=== PATIENT | female | born 1930 | race Caucasian/White ===

== ENCOUNTER 2017-04-29 19:37 | Emergency (ER) | payer BC, MEDICARE ==
[~2017-04-29] VITALS: Ht 160 cm; Wt 61.2 kg
--- NOTE | 2017-04-29 19:58 | NUR ---
RT IN ROOM FOR EKG
[2017-04-29] MEDS ORDERED: METF500T4 PO (20:05)
--- NOTE | 2017-04-29 20:09 | NUR ---
XRAY IN ROOM FOR IMAGING
--- NOTE | 2017-04-29 20:14 | ER.PDOC ---
General Chief Complaint: Trauma Stated Complaint: SHOULDER AND CHEST INJURY Time seen by MD: 20:11 Source: patient, family Exam Limitations: no limitations History of Present Illness Initial Comments 87 year old white female who was brought in after a fall. She was trying to go the bathroom earlier when she failed on a two steps stairway and hurt anterior chest wall. No shortness of breath, no head injury. No open wound. Occurred: this morning Where: home Severity: moderate Injuries/Pain Location: chest Context: Slipped Loss of Consciousness: No Loss of Consciousness Allergies: Coded Allergies: Penicillins (Verified Allergy, Unknown, Rash, 04/29/17) Sulfa (Sulfonamide Antibiotics) (Verified Allergy, Unknown, 04/29/17) MEDS Reported Medications Metformin Hcl (METFORMIN HCL) 500 Mg Tablet, 1 TAB PO BID, #60 TAB 3 Refills 04/29/17 Past Medical History Medical History: diabetes, other (dementia) Surgical History: back LMP (females 10-50): postmenopause Social History Smoking: non-smoker Alcohol Use: none Drug Use: none Review of Systems Constitutional: denies no symptoms reported, denies see HPI, denies chills, denies diaphoresis, denies fever, denies malaise, denies weakness, denies other Eyes: denies no symptoms reported, denies see HPI, denies blindness, denies blurred vision, denies drainage, denies decreased acuity, denies foreign body sensation, denies inflammation, denies pain, denies photophobia, denies previous injury, denies shadows, denies tunnel vision, denies vision change, denies contact lenses, denies glasses, denies other Ears, Nose, Mouth, Throat: no symptoms reported Respiratory: see HPI Cardiovascular: denies no symptoms reported, denies see HPI, denies chest pain , denies edema, denies palpitations, denies syncope, denies other Gastrointestinal: no symptoms reported Genitourinary: no symptoms reported Musculoskeletal: no symptoms reported Skin: no symptoms reported Physical Exam General Appearance: No Apparent Distress, WD/WN Head: No Evidence of Injury Eyes: bilateral eye normal inspection Ears, Nose, Mouth, Throat: No Evidence of ENT Injury Neck: Non-Tender, Normal Alignment, Nexus criteria neg Cardiovascular/Respiratory: Regular Rate, Rhythm, No M/R/G, Normal Peripheral Pulses, No JVD, Normal Breath Sounds, No Respiratory Distress, Rib Tenderness ( sternal tenderness and right anterior rib cage pain along the nipple line) Gastrointestinal: Normal Bowel Sounds, No Organomegaly, No Pulsatile Mass, Non Tender, Soft Back: Normal Inspection, No CVA Tenderness, No Vertebral Tenderness Extremities: No Evidence of Injury, Normal Range of Motion, Non-Tender, No Pedal Edema Ashutosh Coma Score Best Eye Response: (4) Open Spontaneously Best Verbal Response: (5) Oriented Best Motor Response: (6) Obeys Commands Results/Orders Results/Orders Administered Medications Medications (Trade) Dose Ordered Sig/Jonnathan Route PRN Reason Start Time Stop Time Status Last Admin Dose Admin Acetaminophen/ Codeine Phosphate (Tylenol #3) 2 each OT ONCE PO 04/29/17 20:30 04/29/17 20:31 DC 04/29/17 20:34 EKG/XRAY/CT/US CT Comments: visible part of ribs and sternum have no fractures Departure Time of Disposition: 21:48 Disposition: 01 HOME, SELF-CARE Impression: Primary Impression: Rib pain Additional Impression: Sternal pain Condition: Stable Referrals: PCP,UNKNOWN (PCP) PRIMARY CARE PROVIDER Additional Instructions: Tylenol #3 prn Follow up PCP RTER prn Watch out for shortness of breath, fever and worsening pain DANAE DOUGLAS MD Apr 29, 2017 20:14
[2017-04-29] MEDS ORDERED: TYLENOL #3 PO ONE ×2 (20:30→20:32)
--- NOTE | 2017-04-29 20:34 | PCM.EKG ---
[facility] Test Date: 2017-04-29 Test Time: 20:08:07 Pat Name: TONI LYNCH Department: Room: Gender: F Burglar Alarm Mechanic: [id number] : [id number] Requested By: ATIF DOUGLAS Order Number: [id number] Reading MD: Atif Douglas Measurements Intervals [place] Rate: 75 P: 59 MS: 148 QRS: 75 QRSD: 88 T: 76 QT: 394 QTc: 439 Interpretive Statements Normal sinus rhythm Normal ECG No previous ECG available for comparison Electronically Signed On 05-01-2017 7:24:23 CDT by Atif Douglas Please click the below link to view image of tracing.
--- NOTE | 2017-04-29 20:37 | DIREP ---
PROCEDURE:CHEST 1 VIEW COMPARISON:None. INDICATIONS:back pain FINDINGS: LUNGS/PLEURA:No significant pulmonary parenchymal abnormalities. No effusions. VASCULATURE:Normal. Unremarkable pulmonary vasculature. CARDIAC:Normal. No cardiac silhouette abnormality or cardiomegaly. MEDIASTINUM:Normal. No visible mass or adenopathy. BONES:Degenerative changes of the spine and shoulders. OTHER:EKG leads overlie the chest. CONCLUSION:No acute cardiopulmonary disease. Dictated by: Abram Moon M.D. on 04/29/2017 at 08:34 PM
--- NOTE | 2017-04-29 21:15 | DIREP ---
PROCEDURE:CT SPINE THORACIC W/O COMPARISON:[facility], CR, XRAY CHEST SINGLE VW, 04/29/2017, 08:09 PM. INDICATIONS:fall, back pain TECHNIQUE:Multi-planar CT images were obtained and created without intravenous contrast. FINDINGS: VERTEBRAE: Mild compression deformities of the T10 and L1 vertebral bodies, age indeterminate. PARASPINAL AREA:Normal. DISC LEVELS:Normal. ALIGNMENT:Normal. OTHER:Fusion of lumbar spine, incompletely visualized. Multiple gallbladder calculi seen. CONCLUSION:Mild compression deformities of T10 and L1 vertebral bodies, age indeterminate. Further evaluation with MRI or bone scan may be helpful. Dictated by: Abram Moon M.D. on 04/29/2017 at 09:08 PM
== END 2017-04-29 22:00 | disposition home or self-care (01) ==
LOC: ER 19:37
DX: R07.81 Pleurodynia (principal); E11.9 Type 2 diabetes mellitus without complications; F03.90 Unspecified dementia, unspecified severity, without behavioral disturbance, psychotic disturbance, mood disturbance, and anxiety; Z88.0 Allergy status to penicillin; Z88.2 Allergy status to sulfonamides; Z79.899 Other long term (current) drug therapy
CPT/HCPCS: 71010; 72128; 93005; 99284; J3490